=== PATIENT | female | born 1930 | race Caucasian/White ===

== ENCOUNTER 2017-11-02 13:38 | Inpatient (IN) | payer MEDICARE, MEDICAID ==
[~2017-11-02] VITALS: Ht 157.5 cm; Wt 61.2 kg
[~2017-11-02 13:38] MED LIST: LISINOPRIL40 MG PO
--- NOTE | 2017-11-02 19:30 | NUR ---
PT ARRIVED TO ROOM 126 VIA STRETCHER FROM ER. PT TRANSFERRED TO BED AND WARM BLANKETS GIVEN. MONITOR ON AND VITAL SIGNS TAKEN, DENIES C/O DISCOMFORT AT THIS TIME.
--- NOTE | 2017-11-02 21:20 | NUR ---
ASSESSMENT COMPLETED. PT IS ALERT, ORIENTED TO SELF AND SURROUNDINGS. CANNOT RECALL THE DATE. REMEMBERS THAT HER NIECE BROUGHT HER TO THE EMERGENCY ROOM BECAUSE SHE FELL, BUT CANNOT RECALL WHEN OR HOW SHE FELL. PT IS POOR HISTORIAN IN REGARDS TO MEDICAL HISTORY WELL. DENIES PAIN. DENIES NAUSEA. LUNGS CLEAR, RA. HR IRREGULARLY IRREGULAR. BOWEL TONES ACTIVE. SKIN APPEARS FRAGILE, BRUISES AND ABRASIONS NOTED TO LOWER BACK AND BUTTOCKS, ABRASIONS NOTED TO BILATERAL ELBOWS. TRACE EDEMA NOTED IN BILATERAL FEET/ANKLES. SHAW IN PLACE, DRAINING FREELY. PT REPORTS "I'VE WET MYSELF" AND I DISCOVERED THAT PT WAS INCONTINENT OF LARGE WATERY STOOL. PT UP TO BSC WITH 1-2PA, SLIGHTLY UNSTEADY ON FEET. PT FINISHED HAVING BM ON COMMODE, STOOL HAS FOULD ODOR AND APPEARS SOMEWHAT GELATINOUS. SAMPLE OBTAINED AND WILL ASK DR. HAIDER IF HE'D LIKE IT SENT TO LAB. PERICARE PROVIDED AND PT RETURNED BACK TO BED WITH ATTENDS AND CHUX IN PLACE. MAG RIDER STARTED AND PT WAS ABLE TO SWALLOW POTASSIUM PILLS WITHOUT DIFFICULTY. PT GIVEN CALL LIGHT AND INSTRUCTED ON USE, BED ALARM ON FOR SAFETY. WILL CONTINUE TO MONITOR.
--- NOTE | 2017-11-02 22:19 | NUR ---
PT DESATURATED TO 84% ON RA, PLACED 1L O2 VIA NC AND SPO2 QUICKLY RETURNED TO 98%. PT DENIES ANY DISCOMFORT AND DENIES REQUESTS. WILL CONTINUE TO MONITOR.
--- NOTE | 2017-11-02 23:27 | NUR ---
PT RESTING, IN TO REPLACE OXIMETER PROBE, PT OPENED EYES. DENIES DISCOMFORT. R.T. IN TO INSTRUCT I.S. FRESH WATER PROVIDED TO PT, DENIES FURTHER REQUESTS.
--- NOTE | 2017-11-03 00:15 | NUR ---
ASSESSMENT COMPLETED. PT HAS BEEN UNABLE TO SLEEP MUCH. DENIES PAIN AND NAUSEA. LUNGS CLEAR, 1L O2 VIA NC. HR REGULAR AT THIS TIME. BOWEL TONES ACTIVE, NONTENDER. IV PATENT, INFUSING WNL. SHAW PATENT. PT DENIES NEEDS, WILL CONTINUE TO MONITOR.
--- NOTE | 2017-11-03 00:37 | EKG ---
[facility] [address] [place], [place] [address] Signed Sinus tachycardia with premature atrial complexes Incomplete right bundle branch block Possible Right ventricular hypertrophy ST \T\ T wave abnormality, consider inferior ischemia ST \T\ T wave abnormality, consider anterolateral ischemia Abnormal ECG No previous ECGs available Confirmed by PAM HAIDER MD ([id number]) on 11/03/2017 12:37:39 AM Electronically Signed By: PAM HAIDER MD 11/03/17 0037 PATIENT NAME: ANTHONY MULLINS Antonette Electrocardiogram DATE OF : [birth year] PHYSICIAN: PAM HAIDER MD REPORT #: [id number] REPORT IS CONFIDENTIAL AND NOT TO BE RELEASED WITHOUT AUTHORIZATION
--- NOTE | 2017-11-03 01:30 | NUR ---
CALLED AND SPOKE TO DR. HAIDER TO REPORT URINE OUTPUT BELOW GOAL OF 200ML PER 4 HOURS, PT ONLY HAD 128ML OUT. ALSO REPORTED THAT PT'S BP READINGS HAVE BEEN LOW. DR. HAIDER GAVE AN ORDER FOR A ONE TIME 1L NS BOLUS TO RUN OVER 3 HOURS. I ALSO INFORMED DR. HAIDER OF THE BOWEL MOVEMENT PT HAD AND ASKED IF HE'D LIKE ANY LABS DONE WITH THAT STOOL SAMPLE. DR. HAIDER GAVE AN ORDER FOR C.DIFF, STOOL WBC'S, AND STOOL SAMPLE. BOLUS STARTED AND STOOL SAMPLE SENT TO LAB.
--- NOTE | 2017-11-03 02:30 | NUR ---
@ 0200- BP: 79/27 (40) LOPRESSOR HELD. PT HAD BEEN SLEEPING ON SIDE SO I WENT IN TO POSITION HER ON HER BACK AND RECHECK. AFTER REPOSITIONING, BP: 127/62 (77). AFTER REPOSITIONING PT, NOTICED THAT HER IV HAD BEEN PULLED OUT AND HER BEDDING WAS SATURATED FROM IV FLUIDS. BEDDING AND GOWN CHANGED. IV CATHETER TIP WAS INTACT. NEW 20G IV PLACED ON FIRST ATTEMPT IN RIGHT WRIST. PT TOLERATED WELL. IVF AND BOLUS RESTARTED. BP CUFF MOVED TO LEFT ARM. PT DENIES NEEDS AT THIS TIME, WILL CONTINUE TO MONITOR.
--- NOTE | 2017-11-03 04:00 | NUR ---
PT RESTING, WOKE WHILE I WAS CHECKING SHAW OUTPUT. ASSESSMENT COMPLETED, NO CHANGES FROM PREVIOUS ASSESSMENT. PT DENIES PAIN AND NAUSEA. DENIES NEEDS AT THIS TIME, WILL CONTINUE TO MONITOR.
--- NOTE | 2017-11-03 06:00 | NUR ---
IN TO DRAIN SHAW, PT AWAKE, RESTING IN BED. DENIES PAIN. WARM BLANKET PROVIDED PER REQUEST. DENIES FURTHER NEEDS.
--- NOTE | 2017-11-03 09:15 | NUR ---
ASSESSMENT COMPLETED, DENIES C/O AT THIS TIME. PT SAT ON EDGE OF BED AND ATE APPROX 30% OF REG DIET FOR BREAKFAST. PT RETURNED TO BED WITH ASSIST AND STATES FEELING TIRED. KRISTAL PIT SLAGMANPORTIA Quintero IN TO ASSESS PT.
--- NOTE | 2017-11-03 10:07 | NUR ---
DR. HAIDER IN TO ASSESS PT. IVF INCREASED TO 200 MLS/HR PER DR. STEWARD.
--- NOTE | 2017-11-03 10:43 | NUR ---
ORosa HERE TO WORK WITH PT.
--- NOTE | 2017-11-03 12:28 | NUR ---
ASSESSMENT COMPLETED, DENIES C/O DISCOMFORT. SPONGE BATH GIVEN AND GOWN CHANGED. VITAL SIGNS COMPLETED. PT RESTING WITH HOB ELEVATED.
--- NOTE | 2017-11-03 13:58 | NUR ---
P.T. HERE AND PT UP TO [facility] HAD SMALL BROWN MUCOUS BM. PT AMBULATED A FEW STEPS WITH WALKER AND 2 PERSON ASSIST TO JENNIFFER CHAIR. PT RESTING IN CHAIR.
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
--- NOTE | 2017-11-03 14:33 | NUR ---
NEW BAG OF IVF HANGING, PATIENT SITTING UP IN CHAIR WATCHING TV AND EATING SOUP. DENIES NEEDS AT THIS TIME.
--- NOTE | 2017-11-03 14:34 | NUR ---
REPORT GIVEN TO AUBRIE Busch ON MED/SURG. PT TRANSFERRED TO ROOM [address] [facility] CHAIR.
--- NOTE | 2017-11-03 14:34 | NUR ---
RECIEVED REPORT VIA TELEPHONE FROM GAL ALEMAN RN.
--- NOTE | 2017-11-03 15:00 | NUR ---
AT 1440, PT TRANSFERED FROM CCU TO ROOM 110 VIA RECLINING CHAIR, ACCOMPANIED BY LIEN IRENE. PT AWAKE, ALERT. SLIGHTLY SLOW TO RESPOND, BUT ORIENTED X 4. PT DENIED PAIN. HAS INSPIRATORY WHEEZE TO RIGHT MID LUNG LOBE. ENCOURAGE PT TO DEEP BREATH AND COUGH, USE INSENTIVE SPIROMETER.
--- NOTE | 2017-11-03 16:18 | NUR ---
PT SITTING UP IN RECLINER, RESTING QUIETLY. NO S/S DISTRESS OR DISCOMFORT.
--- NOTE | 2017-11-03 18:42 | NUR ---
PT TRANSFERED FROM CCU TO FLOOR THIS AFTERNOON. HAS D5LR INFUSING AT 200 CC/HR. ON REGULAR DIET, APETITE FAIR. HAS BEEN OUT OF BED TO RECLINER SINCE TRANSFER TO FLOOR. ON TELE # 5, HX AFIB, HRR, IN 80s AT THIS TIME. 1 PERSON ASSIST TO BEDSIDE COMMODE.
--- NOTE | 2017-11-03 18:49 | NUR ---
DR. HAIDER NOTIFIED VIA TELEPHONE THAT PT ONLY HAD 150 CC URINE OUT IN LAST 4 HOURS. NO NEW ORDERS AT THIS TIME.
--- NOTE | 2017-11-03 19:41 | NUR ---
RECIEVED REPORT FROM DAY SHIFT NURSE. PATIENT RESTING IN BED. IVF INFUSING W/O DIFFICULTY. NEW BAG INFUSING. SHAW PUTTING OUT CLEAR, YELLOW URINE. NO C/O PAIN. PATIENT DENIES NEEDS. CALL LIGHT IN REACH.
--- NOTE | 2017-11-03 20:52 | NUR ---
PATIENT SLEEPING. CALL LIGHT IN REACH.
--- NOTE | 2017-11-03 22:00 | NUR ---
CHECKED PT FOR EPISODE OF INCONT., FOUND DRY.
--- NOTE | 2017-11-03 22:00 | NUR ---
PATIENT RESTING IN BED. ORIENTED TO SELF ONLY. SHE KNOWS SHE IS IN [place] BUT WHEN ASKED WHAT BUILDING WE WERE IN SHE STATED, "POST OFFICE." LUNGS CLEAR, COURSE IN LLL. ENCOURAGED COUGHING AND DEEP BREATHING. HR IRREGULAR. GENERALIZED NON-PITTING EDEMA IN BILATERAL LOWER EXTREMETIES. NO C/O PAIN. SHAW EMPTIED. VS OBTAINED. PT DENIES NEEDS. IVF INFUSING W/O DIFFICULTY. CALL LIGHT IN REACH.
--- NOTE | 2017-11-03 23:30 | NUR ---
PATIENT SLEEPING. IVF INFUSING W/O DIFFICULTY. CALL ESCOBAR IN REACH.
--- NOTE | 2017-11-04 00:27 | NUR ---
PATIENT RESTING IN BED. NEW BAG OF IVF INFUSING. CHECKED PT FOR EPISODE OF INCONT., FOUND DRY. HYDRATION OFFERED. PT DENIES NEEDS. CALL LIGHT IN REACH.
--- NOTE | 2017-11-04 02:30 | NUR ---
PATIENT RESTING WITH EYES CLOSED. EMPTIED SHAW TO FIND 150CC IN BAG. CHECKED FOR EPISODE OF INCONT., BRIEF WAS WET WITH URINE. PERFORMED PERICARE AND SHAW CARE, CHANGED BRIEF, ADVANCED CATHETER AND FILLED BALLOON WITH 12CC. PT ONLY ORIENTED TO SELF. PATIENT WAS VERY IRRITATED WITH MYSELF FOR WAKING HER UP. I TRIED TO EXPLAIN TO HER THE REASONING BUT SHE DID NOT UNDERSTAND. SHE DID NOT BELIEVE I WAS HER NURSE. ASSISTED PT TO BSC WITH ELECTRICAL CONTROLS ASSEMBLER. PT HAD A SMALL LIQUID BM. BED LINEN CHANGED. IVF INFUSING W/O DIFFICULTY. BED ALARM ON. CALL LIGHT IN REACH.
--- NOTE | 2017-11-04 04:17 | NUR ---
PATIENT SLEEPING. CALL LIGHT IN REACH. BED ALARM ON.
--- NOTE | 2017-11-04 05:17 | NUR ---
PATIENT SLEEPING EVIDENCE BY SNORING. POSITIONED ON R SIDE. ATTENDS DRY. BED ALARM ON, CALL LIGHT IN REACH.
--- NOTE | 2017-11-04 05:42 | NUR ---
PATIENT SLEPT ALL NIGHT. EXTREMELY IRRITABLE LAST NIGHT WHENEVER WE HAD TO CHECK HER ATTENDS OR SCAN HER BRACELET TO HANG MORE FLUIDS. PATIENT IS STILL CONFUSED, ORIENTED TO SELF ONLY. SHAW LEAKING, ADVANCED AND REFILLED BALLOON WITH 12CC. 1 SMALL LIQUID BM ON BSC WITH 2 PERSON ASSIST.
--- NOTE | 2017-11-04 06:51 | NUR ---
SHAW CATH STILL LEAKING. CHANGED ATTENDS. NOTIFIED MD. OBTAINED ORDER TO D/C CATHETER.
--- NOTE | 2017-11-04 07:13 | NUR ---
PER NOC RN, ZOIE, PT REQUESTED REPORT NOT BE IN ROOM. THIS RN IN ROOM TO CHECK IV, ALONG WITH LIEN LINO. ZOIE CHANGED IV FLUID RATE TO 75 CC/HR, PT HAS D5LR INFUSING. PT NO LONGER HAS SHAW CATHETER. RECIEVED REPORT JUST OUTSIDE PT'S DOOR.
--- NOTE | 2017-11-04 07:30 | NUR ---
patient back to chair from BSC. bed bath done. call button in reach. no other needs at this time.
--- NOTE | 2017-11-04 08:24 | NUR ---
PT IN BED, ASSISTED TO TRANSFER TO RECLINER USING FWW WITH 1 PERSON ASSIST. IS NOW SITTING UP IN RECLINER WITH LEGS ELEVATED, EATING BREAKFAST. DENIES PAIN OR NAUSEA.
--- NOTE | 2017-11-04 09:26 | NUR ---
PT GIVEN AM MEDICATIONS, SPIT OUT ONE TAB OF TEGRATOL, SWALLOWED THE REST. IS DROWSY, ANSWERS INAPROPRIATE. PT UNABLE TO STATE NAME, SON'S NAME, WHO IS IN ROOM, WHERE SHE IS, OR THE EVENTS THAT ARE OCCURING. DR. HAIDER DISCUSSING PT'S CODE STATUS WITH PT'S SON, EXPLAINING POLST FORM. PT HAD BED BATH. WAS INCONTINENT OF URINE. ASSISTED TO CHANGE INTO CLEAN ATTENDS AND GOWN.
--- NOTE | 2017-11-04 10:08 | NUR ---
PT IN BED, AWAKE, ALERT. REPORTED THAT SHE TOLERATED BREAKFAST WELL. ATE 80%. DENIES NAUSEA, DENIES PAIN.
--- NOTE | 2017-11-04 11:41 | NUR ---
PT IN BED, EATING LUNCH. ASSISTED TO REPOSITION IN BED, RAISED HOB. PT TOLERATING LUNCH WELL. DENIED NEEDS.
--- NOTE | 2017-11-04 11:49 | NUR ---
PATIENT SITTING UP IN BED WATCHING TV AND EATING LUNCH. ADJUSTED PATIENT UP IN BED. CALL BUTTON IN REACH. NO OTHER NEEDS AT THIS TIME. BED ALARM ON.
[2017-11-04] MEDS ORDERED: METOPROLOL TAR100 MG PO (12:03)
[2017-11-04] MEDS ORDERED: OXYBUTYNIN CHLOR5 MG PO (12:03)
[2017-11-04] MEDS ORDERED: LISINOPRIL-HCT1 EACH PO (12:03)
[2017-11-04] MEDS ORDERED: AMLODIPINE BESYL5 MG PO (12:04)
--- NOTE | 2017-11-04 12:06 | NUR ---
MED REC COMPLETE WITH [facility] REFILL HISTORY AND PATIENT INTERVIEW.
--- NOTE | 2017-11-04 13:05 | NUR ---
PT AMBULATING IN HALLS WITH PHYSICAL THERAPY. UP WITH FWW WITH 1 PERSON ASSIST.
--- NOTE | 2017-11-04 14:19 | NUR ---
PT SITTING IN CHAIR, JUST FINISHED WALK WITH P.T. SHE SAID IT FELT GOOD, AND JOKED ABOUT GOING FASTER TOMORROW! I TOLD HER I WOULD BRING A STOP WATCH-SHE SMILED. WILL CONTINUE TO FOLLOW
--- NOTE | 2017-11-04 15:16 | NUR ---
PT SITTING UP IN RECLINER. DENIES PAIN OR NAUSEA.
--- NOTE | 2017-11-04 15:19 | NUR ---
PT SITTING UP IN RECLINER. REPORTED THAT SHE IS COMFORTABLE. STATED THAT SHE FEELS WARM ENOUGH. DENIED PAIN, DENIED SHORTNESS OF BREATH, DENIED NAUSEA. DENIED NEED TO USE BATHROOM AT THIS TIME. HAS WATER ON TRAY TABLE AT SIDE, ASKED PT IF SHE WANTED ANYTHING ELSE TO DRINK, PT STATED NO.
--- NOTE | 2017-11-04 16:30 | NUR ---
PATIENT UP TO BSC ONE PERSON ASSIST WITH FWW AND BACK TO CHAIR. CALL BUTTON IN REACH. NO OTHER NEEDS AT THIS TIME.
--- NOTE | 2017-11-04 18:37 | NUR ---
PATIENT TO BED FROM CHAIR ONE PERSON ASSIST WITH FWW. FRESH ICE WATER GIVEN. CALL BUTTON IN REACH. BED ALARM ON. NO NEEDS AT THIS TIME.
--- NOTE | 2017-11-04 18:43 | NUR ---
PT ALERT, ORIENTED X 4, SLOW TO RESPOND AT TIMES. FOLLOWED COMMANDS APROPRIATELY. UP WITH FWW WITH 1 PERSON ASSIST. HAS D5LR INFUSING AT 50 CC/HR. TELE WAS D/C'D. RECIEVED MG 2 GM IV X 2 DOSES THIS SHIFT, ,AND SODIUM PHOSPHORUS 2 PACKETS X 3 DOSES THIS SHIFT. REGULAR DIET, TOLERATED WELL.
--- NOTE | 2017-11-04 19:00 | NUR ---
RECEIVED REPORT FROM RN. PATIENT IS RESTING COMFORTABLY IN BED, BREATHING IS EVEN AND UNLABORED. DENIES NEEDS AT THIS TIME. CALL LIGHT WITHIN REACH.
--- NOTE | 2017-11-04 21:08 | NUR ---
PATIENT RESTING COMFORTABY IN BED, BREATHING IS EVEN AND UNLABORED. COMMUNICATION ARTS LECTURER CHANGED PATIENT'S ATTENDS, PERFORMED LETY CARE AND CHANGED LINENS. PATIENT DENIES FURTHER NEEDS AT THIS TIME. CALL LIGHT WITHIN REACH, ASSESSMENT DONE.
--- NOTE | 2017-11-05 00:30 | NUR ---
PATIENT RESTING COMFORTABLY IN BED, BREATHING IS EVEN AND UNLABORED. CALL LIGHT WITHIN REACH, BED ALARM ON.
--- NOTE | 2017-11-05 04:00 | NUR ---
ATTENDS CHANGED, LETY CARE PERFORMED. PATIENT IS NOW RESTING COMFORTABLY IN BED, BREATHING IS EVEN AND UNLABORED. PATIENT REPORTS 0/10 PAIN. DENIES NEEDS AT THIS TIME. CALL LIGHT WITHIN REACH.
--- NOTE | 2017-11-05 07:14 | NUR ---
BEDSIDE REPORT RECIEVED FROM LIEN MILLS. PT IN BED, AWAKE, ALERT. DENIED PAIN. REPORTED THAT SHE IS COMFORTABLE. DENIED NEEDS.
--- NOTE | 2017-11-05 09:59 | NUR ---
PT HAD LARGE INCONTINENT VOID. ASSISTED UP TO BEDSIDE COMMODE WITH ONE PERSON ASSIST WITH FWW. PT PASSED GAS BUT NO BM. ASSISTED UP TO RECLINER, PERSONAL SUPPLIES IN REACH, CALL LIGHT AT SIDE. PT DENIES PAIN. DENIES OTHER NEEDS. ATE 50% OF BREAKFAST. LINNENS CHANGED.
--- NOTE | 2017-11-05 10:00 | NUR ---
PATIENT UP IN CHAIR. SPOKE WITH PATIENT REGARDING REHAB NEED. PATIENT AGREES THAT SHE MIGHT FALL IF SHE GOES HOME ALONE. DISCUSSED WITH PATIENT SHE MAY NEED TO CONSIDER ASSISTED LIVING FACILITY IN THE FUTURE, OR A CAREGIVER WHO CAN HELP HER AT HOME. SHE IS IN AGREEMENT. SHE STATES SHE WILL TALK WITH HER NEICE.
--- NOTE | 2017-11-05 10:03 | NUR ---
PATIENTS TEMPERATURE WAS 99.7 ORALLY. PT ENCOURAGED TO USE INCENTIVE SPIROMETER. RN NOTIFIED.
--- NOTE | 2017-11-05 11:00 | NUR ---
CLINICALS, ORDERS, PASSR FAXED TO [facility]. FAX CONFIRMATION RECEIVED.
--- NOTE | 2017-11-05 11:30 | NUR ---
[facility] CALL[facility], THEY WILL SEND TRANSPORT FOR PATIENT. STAFF UPDATED.
--- NOTE | 2017-11-05 11:35 | NUR ---
PT UP IN RECLINER, RESTING QUIETLY WITH EYES CLOSED. NO S/S DISTRESS OR DISCOMFORT.
--- NOTE | 2017-11-05 12:27 | NUR ---
PT BEING ASSISTED IN GETTING DRESSED BY FRANCES CARRERA. IV D/C'D WNL BY THIS RN. PT TO DISCHARGE TO SNF, [facility].
--- NOTE | 2017-11-05 13:15 | NUR ---
REPORT GIVEN TO MILENA Ortiz RN AT [facility]. QUESTIONS ASKED AND ANSWERED, VERBALIZED UNDERSTANDING. PT TRANSPORTED TO [facility] VIA [place] W/[employer] [facility], ACCOMPANIED BY JACQUELINE, [facility] EMPLOYEE, LEFT FLOOR AT 1220.
== END 2017-11-05 12:35 | disposition home or self-care (01) | DRG 71 ==
LOC: ED 13:38 → CCU 18:50 → MS 11-03 14:41
PROVIDERS: ADMIT Internal Medicine
DX: G93.41 Metabolic encephalopathy (principal); M62.82 Rhabdomyolysis; N17.9 Acute kidney failure, unspecified; R65.10 Systemic inflammatory response syndrome (SIRS) of non-infectious origin without acute organ dysfunction; I48.0 Paroxysmal atrial fibrillation; E83.42 Hypomagnesemia; I10 Essential (primary) hypertension; Z66 Do not resuscitate; E83.39 Other disorders of phosphorus metabolism
CPT/HCPCS: 36415; 70450; 71260; 80053; 80069; 81001; 82306; 82550; 83605; 83735; 84100; 84484; 85025; 85379; 87045; 87046; 87077; 87205; 87493; 93005; 93010; 97116; 97163; 97165; G0480; J1650; J3475; J7030; J7120; Q9967